=== PATIENT | female | born 1950 | race Caucasian/White ===

== ENCOUNTER 2018-01-17 10:56 | Emergency (ER) | payer MEDICARE ==
[2018-01-17 11:39] LABS: BASOPHILS 0.3 % (0-2); HEMOGLOBIN 13.2 g/dL (12-16); IMMATURE GRANULOCYTES 0.5 % (0-5); LYMPHOCYTES 11.4 % (15-50); MCHC 34.7 g/dL (31.0-37.0); MEAN PLATELET VOLUME 9.7 fL (7.4-10.4); MONOCYTES 8.5 % (2-11); NEUTROPHILS 75.3 % (40-80); PLATELET COUNT 374 10x3/uL (130-400); RBC 4.13 10x6/uL (4.00-5.40); RDW 12.3 % (11.5-14.5); WBC 16.1 10x3/uL (4.8-10.8)
[2018-01-17 11:47] LABS: APPEARANCE CLEAR (CLEAR); BACTERIA FEW /hpf (NONE SEEN); BILIRUBIN NEGATIVE (NEGATIVE); COLOR YELLOW (YELLOW); EPITHELIAL CELLS 0-5 /hpf (0-5); GLUCOSE NEGATIVE (NEGATIVE); KETONE NEGATIVE (NEGATIVE); MUCUS >1+ /lpf (NONE SEEN); NITRITE NEGATIVE (NEGATIVE); PROTEIN NEGATIVE (NEGATIVE); RED CELLS - URINE 0-5 /hpf (0-5); SPECIFIC GRAVITY 1.015 (1.005-1.020); UROBILINOGEN NORMAL (NORMAL); WHITE CELLS - URINE 0-5 /hpf (0-5)
[2018-01-17 11:57] LABS: ALBUMIN 2.9 g/dL (3.4-5.0); ANION GAP 11.3 mmol/L (8-16); BILIRUBIN - TOTAL 0.5 mg/dL (0.2-1.3); CARBON DIOXIDE 29.6 mmol/L (21.0-32.0); CREATININE - SERUM 0.9 mg/dL (0.6-1.3); POTASSIUM - SERUM 3.9 mmol/L (3.5-5.1); PROTEIN - SERUM 7.3 g/dL (6.4-8.2)
== END 2018-01-17 13:26 | disposition home or self-care (01) ==
LOC: D.ER 10:56
PROVIDERS: Emergency Medicine
DX: K59.00 Constipation, unspecified (principal); R10.9 Unspecified abdominal pain

== ENCOUNTER 2018-03-16 19:46 | Emergency (ER) | payer MEDICARE ==
[~2018-03-16] VITALS: Ht 160 cm; Wt 59.1 kg
[2018-03-16 19:57] VITALS: Ht 160 cm; Wt 59.1 kg
[2018-03-16] MEDS ORDERED: ADDERALL 20 MG20 M1 PO (19:58)
[2018-03-16] MEDS ORDERED: MEDROL DOSE PACK4 MG PO (20:08)
[2018-03-16] MEDS ORDERED: ZANTAC150 MG PO (20:57)
[2018-03-16] MEDS ORDERED: ATARAX 25 MG TA25 MG PO (20:57)
[2018-03-16 21:21] VITALS: BP 159/75
== END 2018-03-16 21:22 | disposition home or self-care (01) ==
LOC: D.ER 19:46
DX: L50.9 Urticaria, unspecified (principal)

== ENCOUNTER 2019-07-09 00:26 | Inpatient (IN) | payer MEDICARE ==
[~2019-07-09] VITALS: Ht 160 cm; Wt 70.6 kg
[~2019-07-09 00:26] MED LIST: ADDERALL 20 MG20 M1 PO; ATARAX 25 MG TA25 MG PO; MEDROL DOSE PACK4 MG PO; ZANTAC150 MG PO
[2019-07-09] MEDS ORDERED: BENTYL 20 MG TA20 MG PO (00:36)
[2019-07-09 01:27] LABS: CALC OSMOLALITY 273 mosm/kg (275-300); CARBON DIOXIDE 23.1 mmol/L (21.0-32.0); CHLORIDE - SERUM 96 mmol/L (98-107); CREATININE - SERUM 1.7 mg/dL (0.6-1.3); SODIUM 134 mmol/L (136-145); UREA NITROGEN 14 mg/dL (7-18); eGFR NON AFRICAN AMERICAN 32 mL/min (90-120)
[2019-07-09 01:31] LABS: GLUCOSE 184 mg/dL (74-106)
[2019-07-09 01:34] LABS: BASOPHILS 0.2 % (0-2); EOSINOPHILS 0.1 % (0-7); HEMATOCRIT 46.1 % (36.0-48.0); HEMOGLOBIN 15.3 g/dL (12-16); IMMATURE GRANULOCYTES 6.7 % (0-5); LYMPHOCYTES 3.3 % (15-50); MCH 31.6 pg (26.0-34.0); MCHC 33.2 g/dL (31.0-37.0); MCV 95.2 fL (80.0-100.0); MEAN PLATELET VOLUME 10.2 fL (7.4-10.4); MONOCYTES 2.1 % (2-11); NEUTROPHILS 87.6 % (40-80); RBC 4.84 10x6/uL (4.00-5.40); RDW 12.1 % (11.5-14.5); WBC 19.6 10x3/uL (4.8-10.8)
[2019-07-09 01:35] LABS: PLATELET COUNT 583 10x3/uL (130-400)
[2019-07-09 01:39] LABS: ALBUMIN 2.5 g/dL (3.4-5.0); ALKALINE PHOSPHATASE 156 U/L (46-116); ALT (SGPT) 29 U/L (10-68); AMYLASE - SERUM 24 U/L (25-115); BILIRUBIN - TOTAL 0.69 mg/dL (0.2-1.3); LIPASE 74 U/L (73-393); PROTEIN - SERUM 7.5 g/dL (6.4-8.2)
[2019-07-09 01:41] LABS: TROPONIN-I < 0.017 ng/mL (0.000-0.060)
--- NOTE | 2019-07-09 02:02 | NUR ---
PT TO CT AT THIS TIME.
[2019-07-09 03:17] LABS: APPEARANCE HAZY (CLEAR); BILIRUBIN NEGATIVE (NEGATIVE); COLOR YELLOW (YELLOW); GLUCOSE NEGATIVE (NEGATIVE); KETONE NEGATIVE (NEGATIVE); NITRITE NEGATIVE (NEGATIVE); PROTEIN 1+ mg/dL (NEGATIVE); SPECIFIC GRAVITY 1.015 (1.005-1.020); UROBILINOGEN NORMAL (NORMAL)
[2019-07-09 03:19] LABS: AMORPHOUS SEDIMENT <1+ /lpf (NONE SEEN); BACTERIA FEW /hpf (NEGATIVE); EPITHELIAL CELLS 0-5 /hpf (0-5); MUCUS <1+ /lpf (NONE SEEN); RED CELLS - URINE 0-5 /hpf (0-5); WHITE CELLS - URINE 0-5 /hpf (NEGATIVE)
[2019-07-09 04:41] VITALS: BP 103/63
[2019-07-09 07:55] VITALS: BP 94/51
[2019-07-09 08:41] LABS: HEMATOCRIT 44.4 % (36.0-48.0); HEMOGLOBIN 14.8 g/dL (12-16); MCH 32.3 pg (26.0-34.0); MCHC 33.3 g/dL (31.0-37.0); MCV 96.9 fL (80.0-100.0); PLATELET COUNT 690 10x3/uL (130-400); RBC 4.58 10x6/uL (4.00-5.40); RDW 12.5 % (11.5-14.5); WBC 21.2 10x3/uL (4.8-10.8)
[2019-07-09 08:53] LABS: APTT 25.4 SECONDS (22.8-39.4); INR 1.21 (0.85-1.17); PROTIME 14.8 SECONDS (11.6-15.0)
[2019-07-09 09:00] LABS: ANION GAP 17.4 mmol/L (8-16); CALCIUM 8.6 mg/dL (8.5-10.1); CARBON DIOXIDE 22.1 mmol/L (21.0-32.0); MAGNESIUM - SERUM 2.1 mg/dL (1.8-2.4); PHOSPHOROUS 4.4 mg/dL (2.5-4.9)
[2019-07-09 09:02] LABS: POTASSIUM - SERUM 3.5 mmol/L (3.5-5.1)
[2019-07-09 13:03] VITALS: BP 94/43
[2019-07-09 13:37] LABS: EOSINOPHILS 1 % (0-7); LYMPHOCYTES 3 % (15-50); MONOCYTES 8 % (2-11); NEUTROPHILS 46 % (40-80); PLATELET ESTIMATE INCREASED
[2019-07-09 13:38] LABS: CRENATED CELLS OCC; ROULEAUX OCC
[2019-07-09 14:29] LABS: PATH REVIEW PERIPHERAL SMEAR REVIEWED
--- NOTE | 2019-07-09 14:32 | NUR ---
BLADDER SCANNED PT, PT HAS 73 ML IN BLADDER HAD JUST COME OUT OF RESTROOM BEFORE I SCANNED PT. CONTINUE WITH PLAN OF CARE
--- NOTE | 2019-07-09 15:28 | NUR ---
PT D-DIMER IS 7.94 CALLED AND SPOKE TO MOISES XIE AND RELAYED MESSAGE.
--- NOTE | 2019-07-09 15:55 | NUR ---
PT STARTED TO COUGH AND SPIT UP CONTENTS THAT RESEMBLED PRUNE JUICE, PT BECAME VERY ANTSY UNABLE TO SIT STILL BACK AMD FORTH FROM BED TO BATHROOM TO AIRCONDITIONER WILL GIVE MORE MEDICATION FOR PT TO RELAX AND CALM DOWN
--- NOTE | 2019-07-09 16:13 | NUR ---
I have reviewed this patient and I concur with the Shift Assessment completed by the Licensed Practical Nurse today this shift.
[2019-07-09 16:29] VITALS: BP 90/43
--- NOTE | 2019-07-09 19:25 | NUR ---
PT WAS ORDERED TELEMETRY, PER DELI/BAKERY ASSOCIATE JACOBO NONE AVAILABLE AND PT PLACED ON WAITING LIST. CONTINUE WITH PLAN OF CARE
[2019-07-09 19:30] VITALS: BP 98/53
[2019-07-10] VITALS (8 sets, daily range): BP systolic 90–133; BP diastolic 49–81; Ht 160 cm; Wt 70.6 kg
--- NOTE | 2019-07-10 06:00 | NUR ---
I have reviewed this patient and I concur with the Shift Assessment completed by the Licensed Practical Nurse today this shift.
[2019-07-10 07:33] LABS: CALCIUM 8.3 mg/dL (8.5-10.1); CARBON DIOXIDE 18.9 mmol/L (21.0-32.0); MAGNESIUM - SERUM 2.1 mg/dL (1.8-2.4); PHOSPHOROUS 4.9 mg/dL (2.5-4.9)
[2019-07-10 07:34] LABS: POTASSIUM - SERUM 5.9 mmol/L (3.5-5.1)
--- NOTE | 2019-07-10 07:42 | NUR ---
PT VERY CONFUSED THIS MORNING AND ANTSY. SHE HAS BEEN UP AND DOWN MUBLING AND HAS PULLED IV OUT TWICE ALREADY, PT STATES SHE NEEDS CLARIFICATION ON SURGERY AND HONESTY AND NO ONE IS TELLING HER ANYTHING, WENT OVER CONSENTS AGAIN AND REASON WHY SHE IS IN PAIN, PT WAITING ON PARTNER TO ARRIVE. WILL CONTINUE WITH PLAN OF CARE AND ANSWER ALL QUESTIONS BEST I CAN
[2019-07-10 08:00] LABS: BASOPHILS 0.2 % (0-2); EOSINOPHILS 0.1 % (0-7); HEMATOCRIT 38.1 % (36.0-48.0); HEMOGLOBIN 12.5 g/dL (12-16); IMMATURE GRANULOCYTES 4.8 % (0-5); LYMPHOCYTES 2.6 % (15-50); MCH 31.6 pg (26.0-34.0); MCHC 32.8 g/dL (31.0-37.0); MCV 96.2 fL (80.0-100.0); MEAN PLATELET VOLUME 10.3 fL (7.4-10.4); MONOCYTES 2.2 % (2-11); NEUTROPHILS 90.1 % (40-80); PLATELET COUNT 585 10x3/uL (130-400); RBC 3.96 10x6/uL (4.00-5.40); RDW 12.8 % (11.5-14.5); WBC 39.2 10x3/uL (4.8-10.8)
[2019-07-10 10:43] LABS: UDS - AMPHET NEGATIVE QUAL (NEGATIVE); UDS - BARB NEGATIVE QUAL (NEGATIVE); UDS - BENZO NEGATIVE QUAL (NEGATIVE); UDS - COCAINE NEGATIVE QUAL (NEGATIVE); UDS - OPIATE POSITIVE QUAL (NEGATIVE); UDS - PCP NEGATIVE QUAL (NEGATIVE); UDS - THC NEGATIVE QUAL (NEGATIVE)
--- NOTE | 2019-07-10 14:11 | NUR ---
I have reviewed this patient and I concur with the Shift Assessment completed by the Licensed Practical Nurse today this shift.
--- NOTE | 2019-07-10 15:15 | NUR ---
PT RECEIVED FROM OR AT THIS TIME. VSS. DR LYNNE AT BEDSIDE GIVEN UPDATE NEW ORDERS RECEIVED. FAMILY AT BEDSIDE GIVEN UPDATE
[2019-07-10 16:49] LABS: ANION GAP 15.2 mmol/L (8-16); CALCIUM 7.2 mg/dL (8.5-10.1); CARBON DIOXIDE 19.7 mmol/L (21.0-32.0); CREATININE - SERUM 1.4 mg/dL (0.6-1.3); POTASSIUM - SERUM 5.9 mmol/L (3.5-5.1)
[2019-07-10 17:32] LABS: HEMATOCRIT 38.2 % (36.0-48.0); HEMOGLOBIN 12.5 g/dL (12-16); MCH 31.6 pg (26.0-34.0); MCHC 32.7 g/dL (31.0-37.0); MCV 96.5 fL (80.0-100.0); MEAN PLATELET VOLUME 10.2 fL (7.4-10.4); PLATELET COUNT 540 10x3/uL (130-400); RBC 3.96 10x6/uL (4.00-5.40); RDW 13.1 % (11.5-14.5); WBC 38.6 10x3/uL (4.8-10.8)
[2019-07-10 18:51] LABS: EOSINOPHILS 3 % (0-7); LYMPHOCYTES 6 % (15-50); MONOCYTES 5 % (2-11); NEUTROPHILS 43 % (40-80); PLATELET ESTIMATE INCREASED
--- NOTE | 2019-07-10 19:00 | NUR ---
REPORT RECEIEVED, PT CONFUSED AND DISORIENTED TO PLACE, TIME, AND SITUATION, ATTEMPTED TO REORIENT. ASSESSMENT COMPLETE, SEE FLOWSHEET. SANTA IN PLACE, COLOSTOMY BAG ON LUQ, KWAN DRAIN X2, WOUND VAC ON ABD. NO ACUTE DISTRESS NOTED AT THIS TIME, WILL CONTINUE TO MONITOR.
--- NOTE | 2019-07-10 20:00 | NUR ---
PT PULLED OUT PIV IN RIGHT HAND. CATH TIP INTACT.
--- NOTE | 2019-07-10 20:58 | MORECARE ---
CASE MANAGEMENT DISCHARGE SUMMARY PATIENT: PIPER HERNANDEZ UNIT: [id number] ADM DATE: 07/09/19 AGE: 68 : 54 SEX: F ROOM/BED: D.2305 AUTHOR: RUIZ,DOC PHYSICIAN: REFERRING PHYSICIAN: YAW TORREZ MD DATE OF SERVICE: 07/10/19 Discharge Plan Patient Name: PIPER HERNANDEZ Facility: [facility]:[place] : 1950 Planned Disposition: Home Anticipated Discharge Date: Discharge Date: Expected LOS: Initial Reviewer: [email or web address] Initial Review Date: 07/10/2019 Generated: 07/10/19 9:58 pm Comments DCP- Discharge Planning Updated by [email or web address]: Krista Samuels on 07/10/19 7:[address] Patient Name: PIPER HERNANDEZ Admission Status: ER Accout number: [id number] Admission Date: 07-09-2019 : 1950 Admission Diagnosis: Attending: YAW TORREZ Current LOS: 1 Anticipated DC Date: Planned Disposition: Home Primary Insurance: MEDICARE A & B Discharge Planning Comments: CM met with patient to complete initial dc planning assessment. CM educated patient on the CM role and verbal consent given by patient to complete assessment. Patient lives at home with her life partner Sherman where she is independent with her care. At discharge patient plans to return home and feels this is a safe discharge. CM discussed availability of home health, rehab services, and medical equipment. Sherman will transport home when discharged. Patient denied known discharge needs at this time. Uncertain of discharge needs @ this time. CM will continue to follow and will assist as needed with dc plans/needs. Louver Door Assembler: Krista Samuels DCPIA - Discharge Planning Initial Assessment Updated by [email or web address]: Krista Samuels on 07/10/19 8:54 pm * Is the patient Alert and Oriented? Yes * How many steps to enter\exit or inside your home? * PCP NO PCP * Pharmacy [facility] * Preadmission Environment Home with Family * ADLs Independent * Equipment None * List name and contact numbers for known caregivers / representatives who currently or will assist patient after discharge: [facility] - [phone] OR [phone] * Verbal permission to speak to the caregivers and representatives has been obtained from the patient. Yes * Community resources currently utilized None * Additional services required to return to the preadmission environment? No * Can the patient safely return to the preadmission environment? Yes * Has this patient been hospitalized within the prior 30 days at any hospital? No Patient Name: PIPER HERNANDEZ Page [phone] at 2057 All edits/amendments must be made on the electronic document DICTATION DATE: 07/10/192057 ONION TOPPER: ROMA 07/10/192057 RPT#: [id number] DC DATE: STATUS: ADM IN [facility] [address] [place] [address] END OF REPORT
--- NOTE | 2019-07-10 21:00 | NUR ---
RESTRAINTS IN PLACE, NO ACUTE DISTRESS NOTED.
--- NOTE | 2019-07-10 21:19 | NUR ---
SPOKE WITH DR. LYNNE RE: ORDER CLARIFICATION ON VALIUM. NOTIFIED OF CONFUSION AND PT PULLING AT KWAN/NGT - NEW ORDERS REC'D. AT BS - NOTIFIED OF NEED/ORDER FOR RESTRAINTS - SHE VERBALIZED UNDERSTANDING.
--- NOTE | 2019-07-10 23:00 | NUR ---
PT RESTING IN BED, NO ACUTE DISTRESS NOTED.
[2019-07-11] VITALS (23 sets, daily range): BP systolic 104–142; BP diastolic 59–91
--- NOTE | 2019-07-11 01:00 | NUR ---
PT CONFUSED AND DISORIENTED TO TIME, PLACE, AND SITUATION. REORIENTED NEEDED.
--- NOTE | 2019-07-11 03:00 | NUR ---
PT DISORIENTED TO TIME, PLACE, AND SITUATION. PT SLIGHTLY AGITATED, REORIENTED NEEDED. VITALS STABLE.
--- NOTE | 2019-07-11 05:00 | NUR ---
PT RESTING IN BED, DISORIENTED TO PLACE, TIME AND SITUATION. NO ACUTE DISTRESS NOTED, WILL CONTINUE TO MONITOR.
[2019-07-11 05:08] LABS: ANION GAP 11.4 mmol/L (8-16); CARBON DIOXIDE 24.3 mmol/L (21.0-32.0); CREATININE - SERUM 1.1 mg/dL (0.6-1.3); MAGNESIUM - SERUM 2.3 mg/dL (1.8-2.4); VANCOMYCIN - RANDOM 14.2 ug/mL (10.0-20.0)
[2019-07-11 05:13] LABS: POTASSIUM - SERUM 4.7 mmol/L (3.5-5.1)
[2019-07-11 05:21] LABS: BASOPHILS 0.2 % (0-2); EOSINOPHILS 0 % (0-7); HEMOGLOBIN 9.9 g/dL (12-16); IMMATURE GRANULOCYTES 4.1 % (0-5); LYMPHOCYTES 4.1 % (15-50); MCH 30.7 pg (26.0-34.0); MCHC 31.9 g/dL (31.0-37.0); MCV 96.3 fL (80.0-100.0); MONOCYTES 2.1 % (2-11); NEUTROPHILS 89.5 % (40-80); PLATELET COUNT 372 10x3/uL (130-400); RBC 3.22 10x6/uL (4.00-5.40); RDW 12.9 % (11.5-14.5); WBC 24.1 10x3/uL (4.8-10.8)
--- NOTE | 2019-07-11 07:00 | NUR ---
REC'D REPORT AND RESUMED CARE, AWAKE AND CONFUSE, PULLIING AGAINST LINES, O2 VIA NC AT 4L, SAT 96%, OTHER VSS, DENIES PAIN, ASSESSMENT COMPLETED PER FLOWSHEET, VSS, REPOSITIONED TO LEFT SIDE ...NOTED ABDOMEN WITH KWAN DRAINS X2 WITH SERO SANGUINESS DRAINAGE, EMPTIED 90 ON L AND 60 ON RIGHT, MIDLINE WOUND VAC DRESSING IN PLACE, CDI, LL ABDOMEN WITH COLOSTOMY, DRAINING LIQUID STOOL, SANTA TO GRAVITY WITH YELLOW CONENTRATE DRAINGE TO BAG, SCDS AMD WRIST RESTRAINTS ON B/L, WILL CONTINUE WIHT POC
--- NOTE | 2019-07-11 07:57 | OP ---
PATIENT NAME: PIPER HERNANDEZ MEDICAL RECORD: [id number] :54 LOCATION:[facility] D.2305 ADMISSION DATE:07/09/19 SURGEON: FLOR LYNNE MD DATE OF OPERATION: 07/10/2019 SURGEON: Flor Lynne MD PREOPERATIVE DIAGNOSIS: Intraabdominal sepsis, acute renal failure, and pneumoperitoneum. 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 PROCEDURE PERFORMED: Diagnostic laparoscopy converted to laparotomy with abdominal washout of multiple abscess including pelvis and multiple intraloop abscesses. A takedown of a coloenteric fistula, sigmoid colectomy with end colostomy for perforated diverticulitis, right hemicolectomy, mobilization of splenic flexure, and left subclavian central venous line placement. ANESTHESIA: General. COMPLICATIONS: None. SPECIMENS: 1. Right colon. 2. Sigmoid colon. 3. Intraabdominal fluid cultures for Gram stain, culture, and sensitivity. ESTIMATED BLOOD LOSS: 200 cc. Case was grossly contaminated. OPERATIVE COURSE: After consent was obtained, the patient was taken to the operating room and placed in supine position on the operating table. Next, general anesthesia was given via endotracheal intubation after a timeout was performed to confirm the correct patient and procedure. The abdomen was prepped and draped in typical sterile fashion. Ioban dressing was placed and local anesthetic was injected in the left upper quadrant at Greer's point. A stab incision was made with 11-blade scalpel. Using a 5-mm bladeless optical trocar, the abdomen under direct laparoscopic vision. Adequate pneumoperitoneum was achieved. The abdominal cavity was inspected. There was pus located throughout both upper quadrants, the right and left lateral side carrion and pelvis. Two additional 5-mm trocars were then placed in the abdomen under direct laparoscopic vision in the left lateral and left lower quadrants. At this time, the pelvic and the intraabdominal abscess collections were collected in the ocular suctioned and sent for Gram stain culture and sensitivity. The area of largest abscess was loaded on the right lower quadrant into the pelvis. There was concern this time for perforated appendicitis. A small appendix was identified and appeared normal. The cecum was mobilized. The terminal ileum was densely adherent to the sigmoid colon. After gentle blunt dissection and sharp scissor dissection was able to identify the area of coloenteric fistula in order to further evaluate the abdomen and area of contamination. Sharp Metzenbaum scissors were used to transect the coloenteric fistula involving the terminal ileum and sigmoid colon. This allowed for full mobilization of the small bowel. The small bowel was retracted cephalad. The pelvic abscess was OPERATIVE REPORT [id number] PIPER HERNANDEZ irrigated and suctioned. The sigmoid colon was markedly indurated and inflamed consistent with diverticulitis or mass. At this time, I converted to a laparotomy to further evaluate remaining intra-abdominal bowel and GI tract. Using 10 blade scalpel, an incision made from xiphoid process to the pubic tubercle. Dissection continued through the subcutaneous tissue with electrocautery. The fascia was opened with electrocautery. The peritoneum was incised using Metzenbaum scissors at direct vision. Remaining portion of the incision was opened with electrocautery. An Gamaliel wound retractor was placed. Again, the abdomen at this time was copiously irrigated and suctioned. Loculations were taken down with blunt dissection. There was a chronic fistula noted in the terminal ileum. At this time, the ascending colon appeared within normal limits. The transverse colon appeared within normal limits. The transverse mesocolon was retracted cephalad. The ligament of Treitz was identified. The small bowel was run from ligament of Treitz to the terminal ileum. There was significant amount of small bowel with dense fibrinous attachments consistent with ongoing intra-abdominal abscess. No serosal defects identified outside of the fistula in the terminal ileum. At this time, an ileocecectomy was performed. The mesentery was divided. The most viable portion of the distal small-bowel, the cecum, and the hepatic flexure was mobilized. The middle colic vessels were identified. The right colon was transected just at the right branch of the middle colic vessels with the ANA stapler. An ileocolonic anastomosis was performed with a linear cutting GI stapler. The mesentery was taken with the Harmonic scalpel. This specimen was passed off the field and sent for permanent pathology. The staple line was then imbricated using 3-0 Vicryl suture. The mesenteric window was closed using 3-0 Vicryl suture. At this time, the greater omentum was dissected off the transverse colon. The dissection continued to mobilize the splenic flexure. The white line of Toldt was seen on the left colon using much electrocautery and blunt dissection. The sigmoid colon was densely adherent to the left lateral pelvic side wall as well as the uterus. There is an abscess cavity between the anterior surface of the rectum and the uterus. This cavity was entered and purulent debris was irrigated. At this time, the sigmoid colon was mobilized off the pelvic sidewall. The left ureter was identified. A vessel loop was placed on the left ureter. It was traced into the pelvis. The hemorrhoidal vessels were identified. The mesentery was divided using the Harmonic scalpel. The sigmoid colon was transected proximally and healthy viable tissue margins with GI stapler. The remaining portion of mesentery was taken on the rectum to the pelvis. The peritoneal reflection was opened with electrocautery. Dissection continued until healthy distal rectum was identified. Using again a ANA stapler, the rectum was transected. The GI stapler and the sigmoid specimen was passed off the field and sent for permanent pathology. A 2-0 Prolene suture was used to andreina the rectal stump. The right ureter was identified. At this time, it appeared to be in its normal anatomic position without disruption. The abdomen was again copiously irrigated and suctioned. Jewels powder was applied into the pelvis for increased hemostasis. The small bowel was run again from the ligament of Treitz to the ileocolonic anastomosis. No serosal defects were identified. There is no active bleeding, no drainage of succuss. At this time, the incision was made in the left lateral quadrant. Using electrocautery, the subcutaneous tissues was dissected using electrocautery. The fascia was identified. A cruciate incision was made in the anterior fascia. The muscles were gently with blunt dissection. The peritoneum was then opened with electrocautery. A Eleonora was used to clip the staple line on the descending colon. The colon was delivered through the incision site. The fascia was then closed with #1 looped PDS. The skin was loosely reapproximated OPERATIVE REPORT [id number] PIPER HERNANDEZ with nicki. A Prevena dressing was placed. Prior to abdominal closure, 2 KWAN drains were placed in the abdomen, one into the left lateral sidewall, one in the pelvis. Once the Prevena was in place, the colostomy was matured in a Elizabeth fashion using 3-0 Vicryl suture. An ostomy bag was placed. At end of the case, all needle and instrument counts were correct. No complications occurred. The left chest and neck were then prepped and draped in typical sterile fashion. The left subclavian vein was cannulated in the first pass. A guidewire was placed. The dilator was passed over the wire in standard Seldinger fashion. The catheter was then passed over the wire in a standard Seldinger fashion. The wire was removed. All 3 ports were aspirated and flushed. A Biopatch was placed through the skin using 2-0 Prolene suture and a sterile Tegaderm dressing. At this time, the patient was extubated and transferred to the recovery room in satisfactory condition. TRANSINT:[id number] Voice Confirmation ID: [id number] DOCUMENT ID: [id number] FLOR LYNNE MD at 0757 CC: [id number] DICTATION DATE: 07/10/19 1423 COUPLES THERAPIST: 07/10/19 1842 ADM IN [place] [id number] [place] [id number]
--- NOTE | 2019-07-11 09:00 | NUR ---
MORNING MEDS GIVEN PER MAR FLOWSHEET, HELD PO MEDS RE: NPO ORDER, RIGHT LAYNE NGT TO CONCEPCION
--- NOTE | 2019-07-11 11:00 | NUR ---
REASSESSMENT COMPLETED, NO ACUTE CHANGE FROM PREVIOUS ASSESSMENT
--- NOTE | 2019-07-11 13:30 | NUR ---
PULLED OFF OSTOMY BAG, STOOL LEAKING IN BEDS, SKINCARE AND LINEN CHANGE COMPLETED
--- NOTE | 2019-07-11 15:00 | NUR ---
NO ACUTE CHANGE FROM PERVIOUS ASSESSMENT, RESTING WITH NO SIGN OF DISTRESS, VSS
--- NOTE | 2019-07-11 16:00 | NUR ---
I AN O'S COMPLETED, AT BEDSIDE, STATUS UPDATED, VOICES NO NEEDS AT THIS TIME
--- NOTE | 2019-07-11 19:00 | NUR ---
SHIFT ASSESSMENT COMPLETE. AT BEDSIDE. UPDATED ON PT CONDITION. NO FURTHER QUESTIONS AT THIS TIME. PT IS ORIENTED X2, CONFUSED TO TIME AND SITUATION. NGT R NARE LIWS, BROWN BILE NOTED. RR SHALLOW, CLEAR BREATH SOUNDS HEARD BILAT THROUGHOUT ALL LOBES, NC ON @ 4 L/MIN. S1S2 AUDIBLE, HR 105 SINUS TACH SHOWING ON MONITOR. L SUBCLAVIAN CVL INFUSING D5 1/2 NS @ 100 ML/HR, FOLIC ACID @ 100 ML/HR AND MORPHINE PACKING TRACTOR MACHINE OPERATOR 1 MG Q10 MIN, 2 MG BOLUS DOSE Q3 HRS FOR BREAK THROUGH PAIN, 10 MG 4 HOUR LOCKOUT, PACKING TRACTOR MACHINE OPERATOR BUTTON WITHIN REACH. L HAND PIV S/L. ABD FLAT, MIDLINE INCISION, WOUND VAC IN PLACE, NO AIR LEAK DETECTED. LEFT UPPER AND LOWER KWAN'S DRAINING SEROSANG FLUID, COMPRESSED, BS HYPOACTIVE X4. SANTA CATH INTACT DRAINING CONCENTRATED URINE. SCDS ON AND FUNCTIONING. L&R SOFT WRIST RESTRAINTS IN PLACE, SKIN WNL. RADIAL AND PEDAL PULSES PALP. CVP ZEROED, 10. NO FURTHER FINDINGS AT THIS TIME. VSS. CALL LIGHT IN REACH, BED IN LOWEST POSITION. PT IS IN SIGHT OF NURSE'S STATION.
--- NOTE | 2019-07-11 20:00 | NUR ---
DR. LYNNE AT BEDSIDE. UPDATED ON PT CONDITION. VALIUM ORDER CHANGED TO PRN, SEE EMAR FOR FURTHER DETAILS. WILL CONT WITH POC.
--- NOTE | 2019-07-11 21:00 | NUR ---
ORAL CARE PROVIDED. VSS. CALL LIGHT AND HOMEMAKER COMPANION BUTTON WITHIN REACH. REPOSITIONED FOR COMFORT. PT DENIES ANY FURTHER NEEDS. WILL CONT WITH POC.
--- NOTE | 2019-07-11 22:30 | NUR ---
PT VERY ANXIOUS AND CALLING ON CELL PHONE. SPOKE WITH ON PHONE AND UPDATED HER ON WHAT WAS GOING ON. PRN VALIUM ADMIN. REPOSITIONED FOR COMFORT. WILL CONT CLOSE MONITORING.
--- NOTE | 2019-07-11 23:00 | NUR ---
REASSESSMENT COMPLETE. ORAL CARE PROVIDED. PT RESTING PEACEFULLY WITH NO SIGNS OF ACUTE DISTRESS NOTED. UPPER AND LOWER KWAN'S COMPRESSED, SEROSANG FLUID. WOUND VAC INTACT WITH NO AIR LEAK DETECTED. WILL CONT WITH POC.
[2019-07-12] VITALS (17 sets, daily range): BP systolic 100–141; BP diastolic 57–99
--- NOTE | 2019-07-12 01:00 | NUR ---
PT RESTING WITH NO SIGNS OF ACUTE DISTRESS NOTED. VSS. WILL CONT WITH POC.
--- NOTE | 2019-07-12 03:00 | NUR ---
REASSESSMENT COMPLETE. NO CHANGES IN PT CONDITION. VSS. SEE FLOWSHEET FOR FURTHER DETAILS. CALL LIGHT AND ENGINEER OF SYSTEM DEVELOPMENT BUTTON WITHIN REACH. NO FURTHER FINDINGS AT THIS TIME. WILL CONT TO MONITOR.
--- NOTE | 2019-07-12 05:00 | NUR ---
CHG BATH, COMPLETE LINEN CHANGE, SANTA AND ORAL CARE PROVIDED. PT TOLERATED WELL. REPOSITIONED FOR COMFORT. AGRICULTURAL ENGINEERING TECHNICIAN AND CALL LIGHT IN REACH. WILL CONT WITH POC.
[2019-07-12 05:52] LABS: HEMATOCRIT 27.9 % (36.0-48.0); HEMOGLOBIN 8.9 g/dL (12-16); MCH 30.8 pg (26.0-34.0); MCHC 31.9 g/dL (31.0-37.0); MCV 96.5 fL (80.0-100.0); MEAN PLATELET VOLUME 9.9 fL (7.4-10.4); PLATELET COUNT 275 10x3/uL (130-400); RBC 2.89 10x6/uL (4.00-5.40); RDW 13.1 % (11.5-14.5); WBC 20.3 10x3/uL (4.8-10.8)
[2019-07-12 06:01] LABS: CALCIUM 7.5 mg/dL (8.5-10.1); CARBON DIOXIDE 27.6 mmol/L (21.0-32.0); MAGNESIUM - SERUM 2.1 mg/dL (1.8-2.4); SODIUM 148 mmol/L (136-145); VANCOMYCIN - RANDOM 8.1 ug/mL (10.0-20.0)
[2019-07-12 06:07] LABS: CALC OSMOLALITY 300 mosm/kg (275-300); CREATININE - SERUM 0.8 mg/dL (0.6-1.3); GLUCOSE 140 mg/dL (74-106); PHOSPHOROUS 2.5 mg/dL (2.5-4.9); UREA NITROGEN 26 mg/dL (7-18); eGFR NON AFRICAN AMERICAN 76 mL/min (90-120)
[2019-07-12 06:12] LABS: CHLORIDE - SERUM 117 mmol/L (98-107)
--- NOTE | 2019-07-12 07:00 | NUR ---
REC'D REPORT ND RESUMED CARE, SLEEPING AROUSABLE TO VERBAL STIMULI, VSS, O2 VIA NC AT 4 L SAT 97%, LEFT SC TL WITH D5 1/2NS INFUSING AT 100 CC/HR, CVP CONNECTED, ZEROED RATE READING 6, LEFT HAND PIV SL, ABDOMEN WITH WOUND VAC MIDLINE, SITE CDI, LEFT OF MIDLINE KWAN'S X2 WITH COLLAPSED BULB, AND COLOSTOMY WITH LIQUID BROWN DRAINAGE TO BAG, SANTA TO GRAVITY WITH YELLOW CONCENTRATED DRAINAGE TO BAG, B/L SCD'S AND SOFT WRIST RESTRAINTS IN USE, DENIES PAIN, ASSESSMENT COMPLETE PER FLOWSHEET, CALL LIGHT IN REACH
--- NOTE | 2019-07-12 07:30 | NUR ---
DR. LYNNE HERE FOR EVAL, NOTIFIED RE: CRITICAL CHLORIDE, NEW ORDERS GIVEN
--- NOTE | 2019-07-12 08:00 | NUR ---
RIGHT NARE NGT DC'D WITHOUT DIFFICULTY, TOLERATED WITHOUT DISTRESS, KWAN R DC'D WITH 25 CC SEROUS DRAINAGE TO BULB....
--- NOTE | 2019-07-12 08:07 | NUR ---
Nutrition follow-up: NPO Active DT's Labs reviewed Wt: 155# NGT->LIWS D5NS @ 100 ml/hr Pt not meeting estimated energy needs at this time Recommend starting nutrition support. RDN following.
--- NOTE | 2019-07-12 09:40 | NUR ---
MORNING MEDS GIVEN PER MAR FLOWSHEET, HELD PO MEDS PER NPO ORDER
--- NOTE | 2019-07-12 10:00 | NUR ---
AT BEDSIDE, STATUS UPDATED, VOICES NO NEEDS AT THIS TIME
--- NOTE | 2019-07-12 11:00 | NUR ---
ASSESSMENT COMPLETED PER FLOWSHEET, NO ACUTE CHANGE FROM PREVIOUS, RESTING WITH AT BEDSIDE, ICE CHIPS IN USE, NO NEEDS AT THIS TIME
[2019-07-12 11:07] LABS: LYMPHOCYTES 10 % (15-50); MONOCYTES 9 % (2-11); NEUTROPHILS 75 % (40-80); PLATELET ESTIMATE NORMAL
--- NOTE | 2019-07-12 13:10 | NUR ---
Nutrition consult: Received verbal order from Dr. Fernandez to begin TPN. Chart reviewed Spoke with pharmacy TPN, Labs orders entered, RDN following.
[2019-07-12 13:30] LABS: MAGNESIUM - SERUM 1.9 mg/dL (1.8-2.4); PHOSPHOROUS 2.9 mg/dL (2.5-4.9)
--- NOTE | 2019-07-12 13:30 | NUR ---
SLEEPING WITH NO SIGN OF DISTRESS, VSS, AROUSES TO VERBAL STIMULI, DENIES PAIN CLIENT SUCCESS MANAGER IN USE, CALL LIGHT IN REACH, NO NEEDS AT THIS TIME
--- NOTE | 2019-07-12 15:00 | NUR ---
NO ACUTE CHANGE FROM PREVIOUS ASSESSMENT, WILL CONTINUE WITH POC
--- NOTE | 2019-07-12 17:50 | NUR ---
REPORT CALLED AND PATIENT TRANSFERRED TO 2205 VIA BED, AAO, FAMILY AT BEDSIDE
[2019-07-12] MEDS ORDERED: ADDERALL 30 MG30 MG PO (18:38)
--- NOTE | 2019-07-12 20:00 | NUR ---
RESTING IN BED ALERT, SOME CONFUSION NOTED, DRIFTS OFF TO SLEEP WHILE TALKING, MORPHINE WIND PROJECTS SUPERVISOR IN USE FOR PAIN CONTROL, D51/2NS, TPN AND LIPIDS INFUSING VIA LEFT CVL WITHOUT DIFFICULTY, KWAN DRAIN TINTACT TO LEFT LOWER QUADRANT WITH SEROUS FLUID NOTED WOUND VAC IN USE TO MIDLINE ABD INCISION, NO DRAINAGE NOTED IN TUBING, SANTA CATH TO GRAVITY DRAINAGE, COLOSTOMY BAG INTACT NO STOOL NOTED SEE SHIFT ASSESSMENT, CALL LIGHT IN REACH, AT BEDSIDE
[2019-07-13 01:20] VITALS: BP 110/67
[2019-07-13 05:52] VITALS: BP 116/57
[2019-07-13 06:36] LABS: BASOPHILS 0.3 % (0-2); EOSINOPHILS 0.6 % (0-7); HEMOGLOBIN 9.3 g/dL (12-16); IMMATURE GRANULOCYTES 8.9 % (0-5); LYMPHOCYTES 6.8 % (15-50); MCH 30.9 pg (26.0-34.0); MCHC 32.1 g/dL (31.0-37.0); MCV 96.3 fL (80.0-100.0); MONOCYTES 2.9 % (2-11); NEUTROPHILS 80.5 % (40-80); PLATELET COUNT 263 10x3/uL (130-400); RBC 3.01 10x6/uL (4.00-5.40); RDW 13.3 % (11.5-14.5); WBC 23.4 10x3/uL (4.8-10.8)
[2019-07-13 06:45] LABS: CALC OSMOLALITY 291 mosm/kg (275-300); CALCIUM 7.8 mg/dL (8.5-10.1); CARBON DIOXIDE 28.1 mmol/L (21.0-32.0); CHLORIDE - SERUM 110 mmol/L (98-107); CREATININE - SERUM 0.6 mg/dL (0.6-1.3); GLUCOSE 161 mg/dL (74-106); MAGNESIUM - SERUM 1.6 mg/dL (1.8-2.4); PHOSPHOROUS 2.9 mg/dL (2.5-4.9); POTASSIUM - SERUM 3.4 mmol/L (3.5-5.1); SODIUM 144 mmol/L (136-145); UREA NITROGEN 18 mg/dL (7-18); eGFR NON AFRICAN AMERICAN > 90 mL/min (90-120)
--- NOTE | 2019-07-13 08:15 | NUR ---
Nutrition follow-uo: Chart reviewed TPN adjusted RDN following
[2019-07-13 08:51] VITALS: BP 110/59
--- NOTE | 2019-07-13 09:54 | NUR ---
PT ALERT X 4. BREATH SOUNDS CLEAR BILAT, 4.5L O2 PER NC. CENTRAL LINE TO LEFT SUBCLAVIAN, DRESSING CDI. WOUND VAC TO MIDLINE INCISION, NO OUTPUT. COLOSTOMY TO LEFT SIDE, FERREIRA LIQUID OUTPUT. KWAN DRAIN TO LLQ, LIGHT PINK OUTPUT. PT REPORTING NO PAIN AT THIS TIME. SANTA IN PLACE, URINE YELLOW AND CLEAR. SCD'S IN USE. FAMILY AT BEDSIDE. BED LOW, CALL LIGHT IN REACH. NO OTHER NEEDS AT THIS TIME.
[2019-07-13 17:29] VITALS: BP 117/60
--- NOTE | 2019-07-13 19:30 | NUR ---
Patient using bathroom, life partner in room with patient. Helped patient back to bed. Patient has midline inscision with dressing c/d/i. Colostomy to the left upper abdomen. Lm drain to the left lower abdomen. L subcalvian central line, no redness or swelling w/ D51/2NS @ 50, TPN @40, Morphine EXECUTIVE OFFICE MANAGER @1,10,10. Encourage patient to call with any needs. Call light, EXECUTIVE OFFICE MANAGER button, and bedside table within reach.
[2019-07-13 20:56] VITALS: BP 115/63
[2019-07-14 00:36] VITALS: BP 100/63
[2019-07-14 05:21] VITALS: BP 103/60
[2019-07-14 07:07] LABS: HEMATOCRIT 26.8 % (36.0-48.0); HEMOGLOBIN 8.7 g/dL (12-16); MCH 30.7 pg (26.0-34.0); MCHC 32.5 g/dL (31.0-37.0); MCV 94.7 fL (80.0-100.0); MEAN PLATELET VOLUME 10.1 fL (7.4-10.4); PLATELET COUNT 287 10x3/uL (130-400); RBC 2.83 10x6/uL (4.00-5.40); RDW 13.2 % (11.5-14.5)
[2019-07-14 07:17] LABS: CALC OSMOLALITY 282 mosm/kg (275-300); CALCIUM 7.4 mg/dL (8.5-10.1); CARBON DIOXIDE 29.6 mmol/L (21.0-32.0); CHLORIDE - SERUM 107 mmol/L (98-107); CREATININE - SERUM 0.6 mg/dL (0.6-1.3); GLUCOSE 156 mg/dL (74-106); MAGNESIUM - SERUM 1.8 mg/dL (1.8-2.4); POTASSIUM - SERUM 3.7 mmol/L (3.5-5.1); SODIUM 140 mmol/L (136-145); UREA NITROGEN 16 mg/dL (7-18); eGFR NON AFRICAN AMERICAN > 90 mL/min (90-120)
[2019-07-14 07:32] LABS: HYPOCHROMASIA 2+; LYMPHOCYTES 2 % (15-50); MONOCYTES 3 % (2-11); NEUTROPHILS 89 % (40-80); PLATELET ESTIMATE NORMAL
[2019-07-14 09:19] VITALS: BP 120/51
[2019-07-14 12:20] VITALS: BP 108/64
[2019-07-14 17:04] VITALS: BP 124/61
--- NOTE | 2019-07-14 19:45 | NUR ---
PATIENT SITTING UP IN BED, SIGNIFICANT OTHER AT BEDSIDE. PATIENT LOOKS A LITTLE FLUSHED. SIGNIFICANT OTHER STATES THAT PATIENT MAY HAVE OVERWORKED HERSELF TODAY. PUT COOL WASH CLOTH ON PATIETNS FACE. ENCOURAGED PATIENT TO CALL WITH ANY OTHER NEEDS. BED RAILS X2. CALL LIGHT, SECURITY SHIFT SUPERVISOR BUTTON AND BEDSIDE TABLE WITHIN REACH.
[2019-07-14 20:00] VITALS: BP 112/59
[2019-07-15 04:00] VITALS: BP 132/64
[2019-07-15 06:29] LABS: BASOPHILS 0.6 % (0-2); EOSINOPHILS 1.4 % (0-7); HEMATOCRIT 26.8 % (36.0-48.0); HEMOGLOBIN 8.7 g/dL (12-16); IMMATURE GRANULOCYTES 11.2 % (0-5); LYMPHOCYTES 6.5 % (15-50); MCH 30.7 pg (26.0-34.0); MCHC 32.5 g/dL (31.0-37.0); MCV 94.7 fL (80.0-100.0); MEAN PLATELET VOLUME 10.3 fL (7.4-10.4); MONOCYTES 5.3 % (2-11); PLATELET COUNT 321 10x3/uL (130-400); RBC 2.83 10x6/uL (4.00-5.40); RDW 13.2 % (11.5-14.5); WBC 30.3 10x3/uL (4.8-10.8)
[2019-07-15 06:44] LABS: CALC OSMOLALITY 272 mosm/kg (275-300); CALCIUM 7.4 mg/dL (8.5-10.1); CARBON DIOXIDE 28.7 mmol/L (21.0-32.0); CHLORIDE - SERUM 103 mmol/L (98-107); CREATININE - SERUM 0.6 mg/dL (0.6-1.3); GLUCOSE 137 mg/dL (74-106); MAGNESIUM - SERUM 1.6 mg/dL (1.8-2.4); PHOSPHOROUS 3.1 mg/dL (2.5-4.9); POTASSIUM - SERUM 3.4 mmol/L (3.5-5.1); SODIUM 136 mmol/L (136-145); eGFR NON AFRICAN AMERICAN > 90 mL/min (90-120)
[2019-07-15 06:49] LABS: UREA NITROGEN 11 mg/dL (7-18)
[2019-07-15 08:21] VITALS: BP 121/67
[2019-07-15 12:12] VITALS: BP 112/56
--- NOTE | 2019-07-15 13:41 | NUR ---
Nutrition follow-up: Dr. Vásquez has advanced diet to vegetarian regular Visited with pt and she ate a good lunch and tolerated. Labs reviewed TPN still infusing; has been discontinued Wt: 155# Will provide food choices and honor all food preferences RDN took food preferences for dinner, breakfast today, tomorrow. Pt to write in preferences from cafeteria menu and pt menu. RDN following.
[2019-07-15 16:57] VITALS: BP 118/57
[2019-07-15 20:00] VITALS: BP 150/63
--- NOTE | 2019-07-15 20:15 | NUR ---
SITTING UP IN BED TALKING TO SIG OTHER. ALERT AND ORIENTED X4. FORGETFUL AT TIMES. RESP EVEN AND NONLABORED. RATES PAIN IN ABD 2. KWAN DRAIN NOTED TO LLQ WITH SEROUS FLUID IN BULB. MIDLINE ABD INCISION TO WOUND VAC WITH NO DRAINAGE NOTED IN CANISTER. COLOSTOMY NOTED TO LLQ WITH LARGE AMOUNT OF BROWN THICK LIQ STOOL. STOMA IS PINK. REFUSES TO WEAR SCDS. O2 @ 1.5L/NC. D5 1/2 NS @ 15 MLHR INFUSING IN LT TLSC. SR ELEVATED X2. CL IN REACH.
--- NOTE | 2019-07-15 22:07 | NUR ---
LT KWAN DRAIN DC/D AT THIS TIME. 50 ML SEROUS FLUID NOTED IN BULB. COLOSTOMY EMPTIED AND STOOL SPECIMENT SENT TO LAB FOR CDIFF.
--- NOTE | 2019-07-15 23:20 | NUR ---
MEDICATED WITH NORCO AND TORADOL ORDERED FOR ABD PAIN. CL IN REACH.
[2019-07-16] VITALS: BP 111/50
[2019-07-16 04:00] VITALS: BP 117/56
[2019-07-16 04:59] LABS: HEMATOCRIT 23.4 % (36.0-48.0); HEMOGLOBIN 7.8 g/dL (12-16); MCH 31.6 pg (26.0-34.0); MCHC 33.3 g/dL (31.0-37.0); MCV 94.7 fL (80.0-100.0); MEAN PLATELET VOLUME 10.4 fL (7.4-10.4); PLATELET COUNT 388 10x3/uL (130-400); RBC 2.47 10x6/uL (4.00-5.40); RDW 13.4 % (11.5-14.5); WBC 22.4 10x3/uL (4.8-10.8)
[2019-07-16 05:08] LABS: CHLORIDE - SERUM 107 mmol/L (98-107); MAGNESIUM - SERUM 1.9 mg/dL (1.8-2.4); PHOSPHOROUS 3.8 mg/dL (2.5-4.9); UREA NITROGEN 11 mg/dL (7-18)
[2019-07-16 05:10] LABS: CALC OSMOLALITY 277 mosm/kg (275-300); CALCIUM 7.4 mg/dL (8.5-10.1); CARBON DIOXIDE 29.3 mmol/L (21.0-32.0); CREATININE - SERUM 0.7 mg/dL (0.6-1.3); GLUCOSE 122 mg/dL (74-106); SODIUM 139 mmol/L (136-145); eGFR NON AFRICAN AMERICAN 89 mL/min (90-120)
[2019-07-16 05:11] LABS: POTASSIUM - SERUM 4.3 mmol/L (3.5-5.1)
[2019-07-16 08:19] VITALS: BP 135/57
[2019-07-16 08:44] LABS: ANISOCYTOSIS OCC; EOSINOPHILS 3 % (0-7); LYMPHOCYTES 7 % (15-50); MONOCYTES 10 % (2-11); NEUTROPHILS 78 % (40-80); PLATELET ESTIMATE NORMAL
[2019-07-16] MEDS ORDERED: HYDROCODON-ACE1 EAC7 PO (09:19)
[2019-07-16] MEDS ORDERED: LEVOFLOXACIN500 MG PO ×2 (09:19→13:49)
[2019-07-16] MEDS ORDERED: FLAGYL500 MG PO ×2 (09:19→13:49)
--- NOTE | 2019-07-16 10:58 | NUR ---
PT ALERT X 4. BREATH SOUNDS CLEAR BILAT. DR LYNNE REMOVED WOUND VAC, DRESSING PLACED ON MIDLINE INCISION. COLOSTOMY TO LEFT SIDE. PT REPORTING PAIN OF 3/10, WILL MONITOR. FAMILY AT BEDSIDE. BED LOW, CALL LIGHT IN REACH. NO OTHER NEEDS AT THIS TIME.
[2019-07-16 12:37] VITALS: BP 115/53
--- NOTE | 2019-07-16 15:39 | NUR ---
Printed information packet on ostomies given to pt. Encouraged her to read through it and we will discuss any questions. She voiced understanding.
--- NOTE | 2019-07-16 16:16 | MORECARE ---
CASE MANAGEMENT DISCHARGE SUMMARY PATIENT: PIPER HERNANDEZ UNIT: [id number] ADM DATE: 07/09/19 AGE: 68 : 52 SEX: F ROOM/BED: D.2206 AUTHOR: RUIZ,DOC PHYSICIAN: REFERRING PHYSICIAN: YAW TORREZ MD DATE OF SERVICE: 07/16/19 Discharge Plan Patient Name: PIPER HERNANDEZ Facility: [facility]:[place] : 1950 Planned Disposition: Home Anticipated Discharge Date: Discharge Date: Expected LOS: Initial Reviewer: [email or web address] Initial Review Date: 07/10/2019 Generated: 07/16/19 5:15 pm DCP- Discharge Planning Updated by [email or web address]: Krista Samuels on 07/10/19 7:[address] Patient Name: PIPER HERNANDEZ Admission Status: ER Accout number: [id number] Admission Date: 07-09-2019 : 1950 Admission Diagnosis: Attending: YAW TORREZ Current LOS: 1 Anticipated DC Date: Planned Disposition: Home Primary Insurance: MEDICARE A & B Discharge Planning Comments: CM met with patient to complete initial dc planning assessment. CM educated patient on the CM role and verbal consent given by patient to complete assessment. Patient lives at home with her life partner Sherman where she is independent with her care. At discharge patient plans to return home and feels this is a safe discharge. CM discussed availability of home health, rehab services, and medical equipment. Sherman will transport home when discharged. Patient denied known discharge needs at this time. Uncertain of discharge needs @ this time. CM will continue to follow and will assist as needed with dc plans/needs. Inspector And Mender: Krista Samuels DCPIA - Discharge Planning Initial Assessment Updated by [email or web address]: Krista Samuels on 07/10/19 8:54 pm * Is the patient Alert and Oriented? Yes * How many steps to enter\exit or inside your home? * PCP NO PCP * Pharmacy [facility] * Preadmission Environment Home with Family * ADLs Independent * Equipment None * List name and contact numbers for known caregivers / representatives who currently or will assist patient after discharge: [facility] [place] - [phone] OR [phone] * Verbal permission to speak to the caregivers and representatives has been obtained from the patient. Yes * Community resources currently utilized None * Additional services required to return to the preadmission environment? No * Can the patient safely return to the preadmission environment? Yes * Has this patient been hospitalized within the prior 30 days at any hospital? No Last DP export: 07/10/19 7:58 p Patient Name: PIPER HERNANDEZ Page [phone] at 1616 All edits/amendments must be made on the electronic document DICTATION DATE: 07/16/191614 FIGHTING VEHICLE SYSTEMS MAINTAINER: ROMA 07/16/191614 RPT#: [id number] DC DATE: STATUS: ADM IN [facility] [address] [place] [address] END OF REPORT
--- NOTE | 2019-07-16 16:23 | MORECARE ---
CASE MANAGEMENT DISCHARGE SUMMARY PATIENT: PIPER HERNANDEZ UNIT: [id number] ADM DATE: 07/09/19 AGE: 68 : 54 SEX: F ROOM/BED: D.2206 AUTHOR: RUIZ,DOC PHYSICIAN: REFERRING PHYSICIAN: YAW TORREZ MD DATE OF SERVICE: 07/16/19 Discharge Plan Patient Name: PIPER HERNANDEZ Facility: [facility]:[place] : 1950 Planned Disposition: Home Anticipated Discharge Date: Discharge Date: Expected LOS: Initial Reviewer: [email or web address] Initial Review Date: 07/10/2019 Generated: 07/16/19 5:23 pm DCP- Discharge Planning Updated by [email or web address]: Krista Samuels on 07/10/19 7:[address] Patient Name: PIPER HERNANDEZ Admission Status: ER Accout number: [id number] Admission Date: 07-09-2019 : 1950 Admission Diagnosis: Attending: YAW TORREZ Current LOS: 1 Anticipated DC Date: Planned Disposition: Home Primary Insurance: MEDICARE A & B Discharge Planning Comments: CM met with patient to complete initial dc planning assessment. CM educated patient on the CM role and verbal consent given by patient to complete assessment. Patient lives at home with her life partner Sherman where she is independent with her care. At discharge patient plans to return home and feels this is a safe discharge. CM discussed availability of home health, rehab services, and medical equipment. Sherman will transport home when discharged. Patient denied known discharge needs at this time. Uncertain of discharge needs @ this time. CM will continue to follow and will assist as needed with dc plans/needs. Repair Specialist: Krista Samuels DCPIA - Discharge Planning Initial Assessment Updated by [email or web address]: Krista Samuels on 07/10/19 8:54 pm * Is the patient Alert and Oriented? Yes * How many steps to enter\exit or inside your home? * PCP NO PCP * Pharmacy [facility] * Preadmission Environment Home with Family * ADLs Independent * Equipment None * List name and contact numbers for known caregivers / representatives who currently or will assist patient after discharge: [facility] - [phone] OR [phone] * Verbal permission to speak to the caregivers and representatives has been obtained from the patient. Yes * Community resources currently utilized None * Additional services required to return to the preadmission environment? No * Can the patient safely return to the preadmission environment? Yes * Has this patient been hospitalized within the prior 30 days at any hospital? No External [facility]iders [facility] Next Contact Date: Service Request Date: Service Type: Resolution: Reviewer: Comments: Coverage Notice Reviewer: [email or web address] Gilbert Maldonado Notice Issued Date-Time: 07/16/2019 15:45 Notice Type: IM Discharge Notice Notice Delivered To: Patient Relationship to Patient: Screen Door Maker Name: Delivery Method: HAND - Hand Delivered Gricelda Days: Prior Verbal Notification: Recipient Understood Notice: Yes Recipient Signature: Yes Med Rec Note Co-signed by Attending: Coverage Notice Comment: Reviewer: [email or web address] Maldonado Notice Issued Date-Time: 07/16/2019 15:45 Notice Type: Patient Choice Letter Notice Delivered To: Patient Relationship to Patient: Screen Door Maker Name: Delivery Method: HAND - Hand Delivered Gricelda Days: Prior Verbal Notification: Recipient Understood Notice: Yes Recipient Signature: Yes Med Rec Note Co-signed by Attending: Coverage Notice Comment: Last DP export: 07/16/19 3:16 Patient Name: PIPER HERNANDEZ Page [id number] at 1623 All edits/amendments must be made on the electronic document DICTATION DATE: 07/16/191622 HEEL CURVER: ROMA 07/16/191622 RPT#: [id number] DC DATE: STATUS: ADM IN [facility] [address] [place] [address] END OF REPORT
--- NOTE | 2019-07-16 16:58 | NUR ---
DISCHARGE PAPERWORK SIGNED, ALL QUESTIONS ANSWERED. GIVEN EXTRA OSTOMY AND DRESSING SUPPLIES. CENTRAL LINE TO LEFT SUBCLAVIAN REMOVED, TIP INTACT. PT REMAINED LAYING FLAT FOR 15 MINUTES. ESCORTED OUT BY WHEELCHAIR.
--- NOTE | 2019-07-17 12:01 | MORECARE ---
CASE MANAGEMENT DISCHARGE SUMMARY PATIENT: PIPER HERNANDEZ UNIT: [id number] ADM DATE: 07/09/19 AGE: 68 : 52 SEX: F ROOM/BED: D.2206 AUTHOR: RUIZ,DOC PHYSICIAN: REFERRING PHYSICIAN: YAW TORREZ MD DATE OF SERVICE: 07/17/19 Discharge Plan Patient Name: PIPER HERNANDEZ Facility: [facility]:[place] : 1950 Planned Disposition: Home Anticipated Discharge Date: Discharge Date: 07/16/2019 Expected LOS: 0 Initial Reviewer: [email or web address] Initial Review Date: 07/10/2019 Generated: 07/17/19 1:00 pm DCP- Discharge Planning Updated by [email or web address]: Krista Samuels on 07/10/19 7:[address] Patient Name: PIPER HERNANDEZ Admission Status: ER Accout number: [id number] Admission Date: 07-09-2019 : 1950 Admission Diagnosis: Attending: YAW TORREZ Current LOS: 1 Anticipated DC Date: Planned Disposition: Home Primary Insurance: MEDICARE A & B Discharge Planning Comments: CM met with patient to complete initial dc planning assessment. CM educated patient on the CM role and verbal consent given by patient to complete assessment. Patient lives at home with her life partner Sherman where she is independent with her care. At discharge patient plans to return home and feels this is a safe discharge. CM discussed availability of home health, rehab services, and medical equipment. Sherman will transport home when discharged. Patient denied known discharge needs at this time. Uncertain of discharge needs @ this time. CM will continue to follow and will assist as needed with dc plans/needs. Business Solutions Architect: Krista Samuels DCPIA - Discharge Planning Initial Assessment Updated by [email or web address]: Krista Samuels on 07/10/19 8:54 pm * Is the patient Alert and Oriented? Yes * How many steps to enter\exit or inside your home? * PCP NO PCP * Pharmacy [facility] * Preadmission Environment Home with Family * ADLs Independent * Equipment None * List name and contact numbers for known caregivers / representatives who currently or will assist patient after discharge: [facility] - [phone] OR [phone] * Verbal permission to speak to the caregivers and representatives has been obtained from the patient. Yes * Community resources currently utilized None * Additional services required to return to the preadmission environment? No * Can the patient safely return to the preadmission environment? Yes * Has this patient been hospitalized within the prior 30 days at any hospital? No Coverage Notice Reviewer: [email or web address] Maldonado Notice Issued Date-Time: 07/16/2019 15:45 Notice Type: IM Discharge Notice Notice Delivered To: Patient Relationship to Patient: Denture Finisher Name: Delivery Method: HAND - Hand Delivered Gricelda Days: Prior Verbal Notification: Recipient Understood Notice: Yes Recipient Signature: Yes Med Rec Note Co-signed by Attending: Coverage Notice Comment: Reviewer: LIZETH Maldonado Notice Issued Date-Time: 07/16/2019 15:45 Notice Type: Patient Choice Letter Notice Delivered To: Patient Relationship to Patient: Denture Finisher Name: Delivery Method: HAND - Hand Delivered Gricelda Days: Prior Verbal Notification: Recipient Understood Notice: Yes Recipient Signature: Yes Med Rec Note Co-signed by Attending: Coverage Notice Comment: Last DP export: 07/16/19 3:23 Patient Name: PIPER HERNANDEZ Page [phone] at 1201 All edits/amendments must be made on the electronic document DICTATION DATE: 07/17/19 1200 AUDIOVISUAL TECHNICIAN: ROMA 07/17/19 1200 RPT#: [id number] DC DATE:07/16/19 STATUS: DIS IN [facility] [address] [place] [address] END OF REPORT
[2019-07-20 16:08] LABS: AEROBE ID Final report (())
== END 2019-07-16 17:13 | disposition home or self-care (01) | DRG 853 ==
LOC: D.ER 00:26 → D.MS 03:03 → D.ICU 03:03 → D.MS 07-12 18:31
PROVIDERS: Family Medicine; Surgery; ADMIT Internal Medicine Nephrology; ATTEND Internal Medicine Nephrology
PROC: 0D1N0Z4 Bypass Sigmoid Colon to Cutaneous, Open Approach (ICD-10-PCS; 2019-07-10)
PROC: 05H633Z Insertion of Infusion Device into Left Subclavian Vein, Percutaneous Approach (ICD-10-PCS; 2019-07-10)
PROC: 0DTN0ZZ Resection of Sigmoid Colon, Open Approach (ICD-10-PCS; principal; 2019-07-10 11:15)
PROC: 0DTH0ZZ Resection of Cecum, Open Approach (ICD-10-PCS; 2019-07-10 11:15)
DX: A41.9 Sepsis, unspecified organism (principal); G92 Toxic encephalopathy; K57.00 Diverticulitis of small intestine with perforation and abscess without bleeding; E87.1 Hypo-osmolality and hyponatremia; N17.9 Acute kidney failure, unspecified; N82.4 Other female intestinal-genital tract fistulae; D62 Acute posthemorrhagic anemia; K66.8 Other specified disorders of peritoneum; K76.0 Fatty (change of) liver, not elsewhere classified; E87.6 Hypokalemia; F10.10 Alcohol abuse, uncomplicated; F12.90 Cannabis use, unspecified, uncomplicated; D69.6 Thrombocytopenia, unspecified

== ENCOUNTER → 2019-07-29 11:25 | Outpatient (CLI) | payer MEDICARE ==
[2019-07-10 12:53] VITALS: BMI 24.2
[~2019-07-29 11:25] MED LIST changes: +ADDERALL 30 MG30 MG PO; +BENTYL 20 MG TA20 MG PO; +FLAGYL500 MG PO; +HYDROCODON-ACE1 EAC7 PO; +LEVOFLOXACIN500 MG PO
== END | disposition home or self-care (01) ==
LOC: D.CT 11:25
PROVIDERS: ATTEND Surgery
DX: T81.9XXA Unspecified complication of procedure, initial encounter (principal); R06.02 Shortness of breath

== ENCOUNTER 2019-10-14 15:51 | Inpatient (IN) | payer OTHER ==
[~2019-10-14] VITALS: Ht 160 cm; Wt 65.5 kg
[2019-10-25] MEDS ORDERED: QVAR REDIHALE10.6 G1 INH (10:59)
[2019-10-25 11:53] LABS: HEMATOCRIT 43.6 % (36.0-48.0); HEMOGLOBIN 14.2 g/dL (12-16); MCH 28.6 pg (26.0-34.0); MCHC 32.6 g/dL (31.0-37.0); RBC 4.96 10x6/uL (4.00-5.40); WBC 8.1 10x3/uL (4.8-10.8)
[2019-10-28] VITALS (15 sets, daily range): BP systolic 83–107; BP diastolic 45–63; BMI 17.9
--- NOTE | 2019-10-28 16:38 | NUR ---
ORDERED 1500ML BOLUS AND ITS INFUSING. BP LOW BUT PT IS A&O AND ASYMPTOMATIC. WILL CTM.
--- NOTE | 2019-10-28 16:43 | NUR ---
EMPTIED 70CC OF BLOOD FROM ABDOMEN KWAN DRAIN, KWAN BACK TO SUCTION. WILL CTM.
--- NOTE | 2019-10-28 17:08 | NUR ---
1700 ARRIVED TO ROOM FROM PACU VIA STRETCHER INITIATED FREQUENT VITAL SIGN EVERY 15 MIN. FAMILY MEMBER AT BEDSIDE
--- NOTE | 2019-10-28 18:30 | NUR ---
1830 INITIATED ONE UNIT FFP
[2019-10-28 18:49] LABS: ANION GAP 14.5 mmol/L (8-16); CARBON DIOXIDE 19.5 mmol/L (21.0-32.0); CREATININE - SERUM 0.9 mg/dL (0.6-1.3); HEMATOCRIT 32.4 % (36.0-48.0); HEMOGLOBIN 10.3 g/dL (12-16); MCH 28.4 pg (26.0-34.0); MCHC 31.8 g/dL (31.0-37.0); MCV 89.3 fL (80.0-100.0); MEAN PLATELET VOLUME 10.1 fL (7.4-10.4); PLATELET COUNT 324 10x3/uL (130-400); RBC 3.63 10x6/uL (4.00-5.40); RDW 15.7 % (11.5-14.5); WBC 20.9 10x3/uL (4.8-10.8)
--- NOTE | 2019-10-28 19:30 | NUR ---
PT A/OX4, FRIEND AT BEDSIDE, RIGHT HAND PIV INTACT WITH IVF INFUSING, DRESSING INTACT TO ABDOMEN, KWAN DRAIN INTACT AND DRAINING BLOODY FLUID, SANTA PATENT TO BSD, VITALS STABLE, DR LYNNE HERE TO SEE PT
--- NOTE | 2019-10-28 19:42 | NUR ---
DR. LYNNE AT BEDSIDE, UPDATE GIVEN, NEW ORDERS RECIEVED,
[2019-10-28 20:31] LABS: EOSINOPHILS 3 % (0-7); LYMPHOCYTES 19 % (15-50); MONOCYTES 1 % (2-11); NEUTROPHILS 69 % (40-80); PLATELET ESTIMATE NORMAL
--- NOTE | 2019-10-28 21:00 | NUR ---
PT RESTING QUIETLY, EYE DROPS GIVEN FOR C/O LEFT EYE IRRITATION, NO DEBRIS NOTED IN EYE, MILD SCLERAL EDEMA NOTED, WILL CONT TO MONITOR
--- NOTE | 2019-10-28 23:15 | NUR ---
PT RESTING QUIETLY WITH NO DISTRESS, VITALS STABLE
[2019-10-29] VITALS (24 sets, daily range): BP systolic 88–108; BP diastolic 42–78; Ht 160 cm; Wt 65.5 kg
--- NOTE | 2019-10-29 00:30 | NUR ---
LAB IN ROOM TO DRAW CBC, PT AWAKE, VITALS STABLE
[2019-10-29 00:53] LABS: BASOPHILS 0.1 % (0-2); EOSINOPHILS 0.1 % (0-7); HEMATOCRIT 29.1 % (36.0-48.0); HEMOGLOBIN 9.5 g/dL (12-16); IMMATURE GRANULOCYTES 0.3 % (0-5); LYMPHOCYTES 4.9 % (15-50); MCH 28.3 pg (26.0-34.0); MCHC 32.6 g/dL (31.0-37.0); MCV 86.6 fL (80.0-100.0); MEAN PLATELET VOLUME 9.8 fL (7.4-10.4); MONOCYTES 6.7 % (2-11); NEUTROPHILS 87.9 % (40-80); PLATELET COUNT 233 10x3/uL (130-400); RBC 3.36 10x6/uL (4.00-5.40); RDW 16.1 % (11.5-14.5); WBC 17.4 10x3/uL (4.8-10.8)
--- NOTE | 2019-10-29 01:30 | NUR ---
PT GIVEN MORPHINE BOLUS FOR SEVERE PAIN
--- NOTE | 2019-10-29 03:30 | NUR ---
PT AWAKE, RIGHT HAND EDEMATOUS AND TENDER TO TOUCH, D/C'D IV, RESITED TO LEFT FOREARM WITH 20 G IV CATH, PT TOLERATED WELL
[2019-10-29 04:26] LABS: BASOPHILS 0.1 % (0-2); EOSINOPHILS 0 % (0-7); HEMATOCRIT 30.2 % (36.0-48.0); HEMOGLOBIN 9.8 g/dL (12-16); IMMATURE GRANULOCYTES 0.4 % (0-5); LYMPHOCYTES 5.2 % (15-50); MCH 28.3 pg (26.0-34.0); MCHC 32.5 g/dL (31.0-37.0); MCV 87.3 fL (80.0-100.0); MEAN PLATELET VOLUME 9.9 fL (7.4-10.4); MONOCYTES 6.4 % (2-11); NEUTROPHILS 87.9 % (40-80); PLATELET COUNT 271 10x3/uL (130-400); RBC 3.46 10x6/uL (4.00-5.40); RDW 16.3 % (11.5-14.5); WBC 19.5 10x3/uL (4.8-10.8)
[2019-10-29 04:36] LABS: APTT 32.3 SECONDS (22.8-39.4); INR 1.09 (0.85-1.17); PROTIME 14.1 SECONDS (11.6-15.0)
[2019-10-29 04:38] LABS: ANION GAP 14.1 mmol/L (8-16); CALCIUM 7.3 mg/dL (8.5-10.1); CARBON DIOXIDE 22.7 mmol/L (21.0-32.0)
[2019-10-29 04:48] LABS: POTASSIUM - SERUM 4.8 mmol/L (3.5-5.1)
--- NOTE | 2019-10-29 05:30 | NUR ---
PT AWAKE WITH SIGNIFICANT OTHER @ BEDSIDE, NO DISTRESS NOTED
--- NOTE | 2019-10-29 08:28 | OP ---
PATIENT NAME: PIPER HERNANDEZ MEDICAL RECORD: [id number] :[birth year] LOCATION:[facility] D.2312 ADMISSION DATE:10/28/19 SURGEON: FLOR LYNNE MD DATE OF OPERATION: 10/28/2019 SURGEON: Flor Lynne MD PREOPERATIVE DIAGNOSES: History of perforated diverticulitis with colostomy present. POSTOPERATIVE DIAGNOSES: History of perforated diverticulitis with colostomy present. PROCEDURE PERFORMED: Laparotomy with extensive adhesiolysis and colostomy reversal. ANESTHESIA: General. COMPLICATIONS: None. SPECIMENS: Descending colon and colorectal anastomotic doughnuts. ESTIMATED BLOOD LOSS: 1500 cc. Case was clean contaminated. OPERATIVE COURSE: After consent was obtained, the patient was taken to the operating room and placed in the supine position on the operating table. Next, general anesthesia was given via endotracheal intubation after a timeout was performed to confirm the correct patient and procedure. The abdomen was prepped and draped in typical sterile fashion. An Ioban dressing was placed. The previous midline incision was opened using a 10-blade scalpel. Dissection carried through subcutaneous tissues and electrocautery. Once the fascia was identified, the fascia was opened with electrocautery. The peritoneum was then grasped with Lyly clamps times 2 and incised with Metzenbaum scissors. Adhesions were gently swept away from the fascia and the remaining portion of the fascia was opened under direct vision using electrocautery. At this time, extensive adhesiolysis was performed last seen approximately 90 minutes. There were innumerable adhesions of the small bowel to the anterior abdominal wall as well as intraloop adhesions with 2 loops of bowel tightly densely adherent to the anterior uterus and rectal cuff. Once the adhesiolysis had been performed, the small bowel was run from the ligament of Treitz to the ileocecal anastomosis on multiple occasions. There were multiple serosal defects noted at the small bowel that were repaired with 3-0 Vicryl suture and the endoscope irrigated and suctioned. The rectal stump was very difficult to mobilize. There were dense adhesions in the presacral fascial plane as well as on the right pelvic side wall. There was extensive bleeding from the right lateral pelvic veins that were ligated with a 3-0 Prolene suture. At this time, an elliptical incision was made around the left lower quadrant colostomy with a 10-blade scalpel. Dissection continued through the subcutaneous tissue using electrocautery. The colon was dissected using right angle dissector and electrocautery to the level of the fascia. A plane was dissected between the fascia and the colon. Circumferential dissection was then performed, which allowed the colon to be delivered back into the abdominal cavity. The fascial defect was closed with interrupted 0 Prolene suture. There was adequate length on the colon to the OPERATIVE REPORT [id number] PIPER HERNANDEZ. At this time, sizers were placed into the rectum and it was held using a 25-mm EEA stapler. The 25-mm anvil was placed into the end colostomy. A linear GI stapler was then used to transect, had healthy tissue with good blood flow. The distal colectomy specimen was passed off the field. The anvil was delivered anterior to the staple line. The EEA stapler was placed into the rectum under direct vision, it was advanced to the distal rectal stump. The spike was deployed and the anvil was attached. The stapler was closed and held for approximately 3 minutes before firing. The anastomosis was incomplete and EEA stapler was removed. The anastomosis was taken down. The wound edges were freshened with sharp scissor dissection. The rectal stump was closed with interrupted 0 Prolene suture and a new anvil was placed into the distal colon specimen. Again, a GI stapler was fired. The anvil was delivered into the staple line. Again, the EEA stapler was placed in the rectum. Again, the spike was deployed. The anvil was attached to the EEA device and closed, held for 3 minutes before firing the circular cutting blade. At this time, the EEA was removed with the anastomosis intact. The entire staple line was reinforced using interrupted 3-0 Vicryl suture as well as Tisseel. The abdomen was copiously suctioned and irrigated at this time with 3 liters of warm normal saline. A KWAN drain was placed to the right lower quadrant and into the presacral fascia. At this time, all members of the surgical team changed gowns and gloves for fascial closure. Deep fascia then closed with #1 looped PDS. Skin was closed with nicki. The colostomy site was loosely reapproximated using nicki. The wound was packed with saline moistened gauze and covered with dry gauze dressings. At the end of the case, all needle and instrument counts were correct. No complications occurred. The patient was extubated and transferred to the PACU in stable condition. TRANSINT:[id number] Voice Confirmation ID: [id number] DOCUMENT ID: [id number] FLOR LYNNE MD at 0828 CC: [id number] DICTATION DATE: 10/28/19 1623 GOLF CADDY: 10/29/19 0241 ADM IN [place] [id number] [place] [address]
--- NOTE | 2019-10-29 09:10 | NUR ---
dr akbar at bedside
--- NOTE | 2019-10-29 09:54 | NUR ---
called pharmacy for fluids
--- NOTE | 2019-10-29 11:27 | NUR ---
paged dr akbar. patient states "2mg q 10 min is not enough. i cant even sleep" stated i will try paging dr akbar again and see if he will give her something else i also educated patient on stitch bonding machine tender. she did not understand the max limit.
--- NOTE | 2019-10-29 13:49 | NUR ---
paged dr akbar again. patient requests more pain meds
--- NOTE | 2019-10-29 14:21 | NUR ---
DR LYNNE PAGED BACK. NO NEW ORDERS
[2019-10-29 17:59] LABS: HEMATOCRIT 26.6 % (36.0-48.0); HEMOGLOBIN 8.8 g/dL (12-16)
--- NOTE | 2019-10-29 19:00 | NUR ---
RECEIVED PATIENT LYING IN BED WITH EYES OPEN. ASSESSMENT COMPLETED. SEE NURSING FLOW SHEET. DRESSING TO ABDOMEN CDI. KWAN DRAIN RIGHT ABDOMEN WITH BLODDY DRAINAGE NOTED. PT RATES PAIN 7/10 HOWEVER IS ON MORPHINE GLAZIER APPRENTICE. PATIENT BP RUNNING LOW THEREFORE PHYSICIAN DOES NOT WANT TO GIVE MORE PAIN MEDICATION. SANTA TO GRAVITY DRAINING CLEAR YELLOW URINE. CL WITHIN REACH AND BED IN LOW POSITION.
--- NOTE | 2019-10-29 21:00 | NUR ---
VISITOR AT BEDSIDE. NO CHANGES NOTED. KWAN DRAIN STILL DEFLATED AND SANTA DRAINING WIHTOUT DIFFICULTY.
--- NOTE | 2019-10-29 22:00 | NUR ---
UPDATE GIVEN TO DR. LYNNE, NO NEW ORDERS RECIEVED
--- NOTE | 2019-10-29 22:08 | NUR ---
EYES CLOSED. RESPIRATIONS EVEN AND UNLABORED. NO DISTRESS NOTED.
--- NOTE | 2019-10-29 23:18 | NUR ---
ASSESSMENT COMPLETED. SEE NURSING FLOWSHEET. NO CHANGES NOTED. BEDSIDE COMMODE PLACED AT PATIENT'S BEDSIDE. CL WITHIN REACH. BED IN LOW POSITION.
[2019-10-30] VITALS (17 sets, daily range): BP systolic 87–131; BP diastolic 37–67
--- NOTE | 2019-10-30 00:22 | NUR ---
PATIENT AROUSED WHEN HANGING IVPB. RELATES PAIN 02/11. HELPS IF SHE DOESN'T MOVE. DENIES NEEDS. CL IN REACH. BED IN LOW POSITION.
--- NOTE | 2019-10-30 02:09 | NUR ---
AROUSED WHEN NURSE ENTERS THE ROOM. NO DISTRESS NOTED. DENIES NEEDS. CL IN REACH.
--- NOTE | 2019-10-30 03:20 | NUR ---
ASSESSMENT COMPLETED. SEE NURSING FLOW SHEET. CONFUSED AND RESTLESS. CL IN REACH. BED IN LOW POSITION. ALARM AUDIBLE. CONTINUE POC.
--- NOTE | 2019-10-30 03:21 | NUR ---
ASSESSMENT COMPLETED. EASILY AROUSED. RELATES SHE IS A LIGHT SLEEPER. PAIN IS 5/10. NO ACUTE CHANGES NOTED. DENIES NEEDS. CL IN REACH.
--- NOTE | 2019-10-30 03:56 | NUR ---
MORPHINE CHIEF PRIVACY OFFICER CHANGED. PAIN 01/11. LAB HERE AND ALLEN BLOOD. NO ACUTE CHANGES NOTED.
[2019-10-30 04:37] LABS: BASOPHILS 0.1 % (0-2); EOSINOPHILS 0.2 % (0-7); HEMATOCRIT 21.8 % (36.0-48.0); IMMATURE GRANULOCYTES 0.3 % (0-5); LYMPHOCYTES 8.4 % (15-50); MCH 28.9 pg (26.0-34.0); MCV 87.6 fL (80.0-100.0); MEAN PLATELET VOLUME 9.9 fL (7.4-10.4); MONOCYTES 8.7 % (2-11); NEUTROPHILS 82.3 % (40-80); RDW 16.5 % (11.5-14.5)
[2019-10-30 04:52] LABS: APTT 35.3 SECONDS (22.8-39.4); INR 1.17 (0.85-1.17); PROTIME 14.8 SECONDS (11.6-15.0)
[2019-10-30 04:54] LABS: CALC OSMOLALITY 280 mosm/kg (275-300); CARBON DIOXIDE 27.5 mmol/L (21.0-32.0); CHLORIDE - SERUM 109 mmol/L (98-107); GLUCOSE 139 mg/dL (74-106); SODIUM 140 mmol/L (136-145); UREA NITROGEN 12 mg/dL (7-18)
[2019-10-30 04:58] LABS: CREATININE - SERUM 0.7 mg/dL (0.6-1.3); eGFR NON AFRICAN AMERICAN 89 mL/min (90-120)
[2019-10-30 05:37] LABS: HEMOGLOBIN 7.2 g/dL (12-16); PLATELET COUNT 208 10x3/uL (130-400); RBC 2.49 10x6/uL (4.00-5.40); WBC 14.5 10x3/uL (4.8-10.8)
--- NOTE | 2019-10-30 06:30 | NUR ---
PATIENT STOOD UP FOR A FEW MINUTES AND SAT IN THE CHAIR. BACK TO BED. NO ACUTE CHANGES NOTED.
--- NOTE | 2019-10-30 06:36 | NUR ---
HGB 7.2. DR LYNNE NOTIFIED BY ERIC PRINT BINDING AND FINISHING WORKER NURSE. NO RESPONSE FROM DR LYNNE AT THIS TIME.
--- NOTE | 2019-10-30 06:38 | NUR ---
CRITICAL LAB CALLED TO DR. LYNNE, NEW ORDERS RECIEVED
--- NOTE | 2019-10-30 07:00 | NUR ---
REC'D REPORT AND RESUMED CARE, AAO, VSS, O2 VIA RM AIR, CIGAR TOBACCO REHANDLER IN USE, C/O PAIN 5/10, IN ABDOMEN, MIDLINE AND TRANSVERSE, INCISION WITH NADIR, DRESSINGS CDI, SANTA TO GRAVITY, CLEAR YELLOW DRAINAGE TO BAG, SCD'S ON B/L, ASSESSMENT COMPLETED PER FLOWSHEET, CALL LIGHT IN REACH, SELF REPOSITIONS, NO NEEDS AT THIS TIME
--- NOTE | 2019-10-30 08:15 | NUR ---
PRBC INITIATED, VSS, NO NEEDS AT THIS TIME
--- NOTE | 2019-10-30 08:32 | NUR ---
Nutrition follow-up: Pt remains NPO after colostomy takedown; waiting for bowel function to return Labs reviewed Wt: 144# today; admit wt 101# ?? Will need nutrition support soon if po diet unable to begin. RDN following.
--- NOTE | 2019-10-30 09:00 | NUR ---
MORNING MEDS GIVEN PER NOV FLOWSHEET
--- NOTE | 2019-10-30 09:30 | NUR ---
GUERA SEARS AT BEDSIDE, UNDRESSED INCISION FOR REDRESSING AND PACKING
--- NOTE | 2019-10-30 10:15 | NUR ---
DRESSING CHANGE COMPLETED, 1 INCH OPENING PACK WITH SALINE GAUZE, COVERED WITH 4 X 4'S, TOLERATED WITHOUT DIFFICULTY, STEAMER BLOCKER PUMP MALFUNCTIONED, CHANGED WITH NEW ONE, NO OTHER NEEDS AT THIS TIME
--- NOTE | 2019-10-30 11:00 | NUR ---
SLEEPING WITH NO SIGN OF DISTRESS, VSS, AROUSES TO VERBAL STIMULI, CALL LIGHT IN REACH, NO NEEDS AT THIS TIME
--- NOTE | 2019-10-30 11:58 | MORECARE ---
CASE MANAGEMENT DISCHARGE SUMMARY PATIENT: PIPER HERNANDEZ UNIT: [id number] ADM DATE: 10/28/19 AGE: 68 : 52 SEX: F ROOM/BED: D.2312 AUTHOR: RUIZ,DOC PHYSICIAN: REFERRING PHYSICIAN: FLOR LYNNE MD DATE OF SERVICE: 10/30/19 Discharge Plan Patient Name: PIPER HERNANDEZ Facility: [facility]:[place] : 1950 Planned Disposition: Anticipated Discharge Date: Discharge Date: Expected LOS: Initial Reviewer: [email or web address] Initial Review Date: 10/29/2019 Generated: 10/30/19 12:57 pm Comments DCP- Discharge Planning Updated by [email or web address]: rKista Samuels on 10/30/19 10:[address] Late Entry 10/29/19 Patient Name: PIPER HERNANDEZ Admission Status: Elective Accout number: [id number] Admission Date: 10-28-2019 : 1950 Admission Diagnosis: Attending: FLOR LYNNE Current LOS: 1 Anticipated DC Date: Planned Disposition: Primary Insurance: [employer] PPO Discharge Planning Comments: CM met with patient to complete initial dc planning assessment. CM educated patient on the CM role and verbal consent given by patient to complete assessment. Patient lives at home with her life partner where she is independent with her care. At discharge patient plans to return home and feels this is a safe discharge. CM discussed availability of home health, rehab services, and medical equipment. Her partner will be her tow driver home. Patient denied known discharge needs at this time. CM will continue to follow and will assist as needed with dc plans/needs. Retail Department Supervisor: Krista Samuels DCPIA - Discharge Planning Initial Assessment Updated by [email or web address]: Krista Samuels on 10/30/19 11:51 am * Is the patient Alert and Oriented? Yes * How many steps to enter\exit or inside your home? * PCP unsure hasn't seen * Pharmacy [facility]/ [facility] * Preadmission Environment Home with Family * ADLs Independent * Equipment None * List name and contact numbers for known caregivers / representatives who currently or will assist patient after discharge: Sherman Donnelly [employer] [facility] - [phone] or [phone] * Verbal permission to speak to the caregivers and representatives has been obtained from the patient. Yes * Community resources currently utilized None * Additional services required to return to the preadmission environment? No * Can the patient safely return to the preadmission environment? Yes * Has this patient been hospitalized within the prior 30 days at any hospital? No Patient Name: PIPER HERNANDEZ Page [id number] at 1158 All edits/amendments must be made on the electronic document DICTATION DATE: 10/30/19 1157 DOOR CUTTER: RMOA 10/30/19 1157 RPT#: [id number] DC DATE: STATUS: ADM IN [facility] [address] [place] [address] END OF REPORT
--- NOTE | 2019-10-30 13:30 | NUR ---
SANTA DC'D WITHOUT DIFFICULTY, LINSEY CARE GIVEN, 800 CC URINE TO BAG
--- NOTE | 2019-10-30 15:00 | NUR ---
OOB TO BSC, URINATED TO BSC, 150 CC, UP TO CHAIR WITH STAND BY ASSIST, NO OTHER ACUTE CHANGE FROM PREVIOUS
--- NOTE | 2019-10-30 17:35 | NUR ---
TRANSFERRED VIA WHEELCHAIR TO ROOM 2234, AAO, SIGNIFICANT OTHER AT BEDSIDE, NO OTHER NEEDS AT THIS TIME
[2019-10-30 20:25] LABS: HEMATOCRIT 25.5 % (36.0-48.0); HEMOGLOBIN 8.5 g/dL (12-16)
[2019-10-31 01:44] VITALS: BP 124/50
[2019-10-31 05:10] LABS: BASOPHILS 0.2 % (0-2); EOSINOPHILS 3.6 % (0-7); HEMATOCRIT 24.6 % (36.0-48.0); HEMOGLOBIN 8.2 g/dL (12-16); IMMATURE GRANULOCYTES 0.4 % (0-5); LYMPHOCYTES 11.7 % (15-50); MCH 28.6 pg (26.0-34.0); MCHC 33.3 g/dL (31.0-37.0); MCV 85.7 fL (80.0-100.0); MEAN PLATELET VOLUME 9.6 fL (7.4-10.4); MONOCYTES 8.1 % (2-11); PLATELET COUNT 206 10x3/uL (130-400); RBC 2.87 10x6/uL (4.00-5.40); RDW 16.2 % (11.5-14.5); WBC 11.3 10x3/uL (4.8-10.8)
[2019-10-31 05:35] LABS: CALC OSMOLALITY 272 mosm/kg (275-300); CALCIUM 7.9 mg/dL (8.5-10.1); CARBON DIOXIDE 31.5 mmol/L (21.0-32.0); CHLORIDE - SERUM 103 mmol/L (98-107); CREATININE - SERUM 0.6 mg/dL (0.6-1.3); GLUCOSE 120 mg/dL (74-106); POTASSIUM - SERUM 3.1 mmol/L (3.5-5.1); SODIUM 137 mmol/L (136-145); UREA NITROGEN 7 mg/dL (7-18); eGFR NON AFRICAN AMERICAN > 90 mL/min (90-120)
[2019-10-31 06:48] VITALS: BP 135/60
--- NOTE | 2019-10-31 07:36 | NUR ---
PT LYING IN BED, NADIR ON MIDLINE ARE CDI, DRESSING TO LEFT SIDE CDI HAS SOME DRAINAGE THROUGH BANDAGE, DAILY DRESSINGS, WILL CHANGE TODAY. KWAN DRAIN ON RT SIDE. PT K+ IS 3.1 THIS MORNING. 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 NO OTHER NEEDS VOICED, ASSUME PT CARE
[2019-10-31 09:01] VITALS: BP 117/66
--- NOTE | 2019-10-31 10:32 | NUR ---
PT K+ IS 3.[address] LYNNE WHO ORDERED 40MEQ OF K+. PT STATES THAT K+ PILLS MAKE HER SICK TO HER STOMACH AND SHE WILL NOT BE ABLE TO SWALLOW PILLS EITHER, HAVE K+ THAT WE CAN PLACE IN WATER OR JUICE TO SEE IF PT CAN HANDLE THAT. WILL CONTINUE WITH PLAN OF CARE
--- NOTE | 2019-10-31 11:35 | NUR ---
PT TRIED TO DRINK K+ MIXTURE AND UNABLE TO, ORDERED 40 MEQ PF K+ FOR PO. WILL CONTINUE WITH PLAN OF CARE
--- NOTE | 2019-10-31 11:47 | NUR ---
I have reviewed this patient and I concur with the Shift Assessment completed by the Licensed Practical Nurse today this shift.
[2019-10-31 13:12] VITALS: BP 105/66
--- NOTE | 2019-10-31 13:18 | NUR ---
NUTRITION F/U CHART REVIEWED. VEGETARIAN CLEAR LIQUID DIET STARTED. WILL MONITOR DIET ADVANCEMENT, PO INTAKE. MAY REQUIRE NUTRITION SUPPORT IF PT UNABLE TO TOLERATE ADVANCED DIET. RD FOLLOWING
[2019-10-31 16:44] VITALS: BP 136/67
--- NOTE | 2019-10-31 19:41 | NUR ---
CHANGED PT DRESSING ON LEFT SIDE, WET TO DRY, INITIAL AND DATED DRESSING SITE. PT IS LUYING IN BED STATES SHE FEELS A LOT BETTER, NO S/SX OF DISTRESS, CL IN REACH CONTINUE WITH PLAN OF CARE
[2019-10-31 20:00] VITALS: BP 153/69
[2019-11-01] VITALS: BP 150/71
[2019-11-01 07:13] LABS: BASOPHILS 0.1 % (0-2); HEMOGLOBIN 9.2 g/dL (12-16); IMMATURE GRANULOCYTES 0.3 % (0-5); MCH 28.3 pg (26.0-34.0); MCHC 32.9 g/dL (31.0-37.0); MCV 86.2 fL (80.0-100.0); MEAN PLATELET VOLUME 9.8 fL (7.4-10.4); MONOCYTES 8.8 % (2-11); NEUTROPHILS 73.8 % (40-80); PLATELET COUNT 325 10x3/uL (130-400); RBC 3.25 10x6/uL (4.00-5.40); RDW 15.7 % (11.5-14.5); WBC 10.5 10x3/uL (4.8-10.8)
[2019-11-01 07:23] LABS: CALC OSMOLALITY 276 mosm/kg (275-300); CARBON DIOXIDE 29.2 mmol/L (21.0-32.0); CHLORIDE - SERUM 104 mmol/L (98-107); CREATININE - SERUM 0.6 mg/dL (0.6-1.3); GLUCOSE 114 mg/dL (74-106); POTASSIUM - SERUM 3.5 mmol/L (3.5-5.1); SODIUM 140 mmol/L (136-145); eGFR NON AFRICAN AMERICAN > 90 mL/min (90-120)
[2019-11-01 07:24] LABS: UREA NITROGEN 3 mg/dL (7-18)
[2019-11-01 08:11] VITALS: BP 158/79
--- NOTE | 2019-11-01 08:27 | NUR ---
SHE IS PASSING GAS, PAIN CONTROLLED WITH THE ERECTION SHOP SUPERVISOR. WALKING TO THE BATHROOM. KWAN TO THE RIGHT SIDE WITHOUT OUTPUT, DRESSING TO THE LEFT SIDE C/D/I. MIDLINE NADIR.
[2019-11-01 08:41] VITALS: BP 128/67
[2019-11-01] MEDS ORDERED: LEVOFLOXACIN500 MG PO (12:42)
[2019-11-01] MEDS ORDERED: HYDROCODON-ACE1 EAC7 PO (12:43)
[2019-11-01] MEDS ORDERED: MIRALAX17 GM PO (12:43)
[2019-11-01 13:41] VITALS: BP 151/56
--- NOTE | 2019-11-01 14:10 | MORECARE ---
CASE MANAGEMENT DISCHARGE SUMMARY PATIENT: PIPER HERNANDEZ UNIT: [id number] ADM DATE: 10/28/19 AGE: 68 : 52 SEX: F ROOM/BED: D.2234 AUTHOR: RUIZ,DOC PHYSICIAN: REFERRING PHYSICIAN: FLOR LYNNE MD DATE OF SERVICE: 11/01/19 Discharge Plan Patient Name: PIPER HERNANDEZ Facility: [facility]:[place] : 1950 Planned Disposition: Anticipated Discharge Date: Discharge Date: Expected LOS: Initial Reviewer: [email or web address] Initial Review Date: 10/29/2019 Generated: 11/01/19 3:09 pm Comments DCP- Discharge Planning Updated by [email or web address]: Elizabeth Mychal on 11/01/19 1:[address] CM met with patient and partner, Sherman. Patient and Sherman state that Sherman will do the wound packing daily if they can get the supplies. I asked patient's primary nurse, Flower. Flower states she will get supplies for them to take home. Both decline need for HHS. No needs identified. Home today. DCP- Discharge Planning Updated by [email or web address]: Krista Samuels on 10/30/19 10:[address] Late Entry 10/29/19 Patient Name: PIPER HERNANDEZ Admission Status: Elective Accout number: [id number] Admission Date: 10-28-2019 : 1950 Admission Diagnosis: Attending: FLOR LYNNE Current LOS: 1 Anticipated DC Date: Planned Disposition: Primary Insurance: [employer] PPO Discharge Planning Comments: CM met with patient to complete initial dc planning assessment. CM educated patient on the CM role and verbal consent given by patient to complete assessment. Patient lives at home with her life partner where she is independent with her care. At discharge patient plans to return home and feels this is a safe discharge. CM discussed availability of home health, rehab services, and medical equipment. Her partner will be her helper/driver home. Patient denied known discharge needs at this time. CM will continue to follow and will assist as needed with dc plans/needs. Lens Generating Machine Tender: Krista Samuels DCPIA - Discharge Planning Initial Assessment Updated by [email or web address]: Krista Samuels on 10/30/19 11:51 am * Is the patient Alert and Oriented? Yes * How many steps to enter\exit or inside your home? * PCP unsure hasn't seen * Pharmacy [facility]/ [facility] * Preadmission Environment Home with Family * ADLs Independent * Equipment None * List name and contact numbers for known caregivers / representatives who currently or will assist patient after discharge: Sherman Donnelly - [facility] - [phone] or [phone] * Verbal permission to speak to the caregivers and representatives has been obtained from the patient. Yes * Community resources currently utilized None * Additional services required to return to the preadmission environment? No * Can the patient safely return to the preadmission environment? Yes * Has this patient been hospitalized within the prior 30 days at any hospital? No Last DP export: 10/30/19 10:58 a Patient Name: PIPER HERNANDEZ Page 29919 at 1410 All edits/amendments must be made on the electronic document DICTATION DATE: 11/01/19 140 GRADUATE ASSISTANT: ROMA 11/01/19 1409 RPT#: [id number] DC DATE: STATUS: ADM IN [facility] [address] [place] [address] END OF REPORT
--- NOTE | 2019-11-04 09:20 | MORECARE ---
CASE MANAGEMENT DISCHARGE SUMMARY PATIENT: PIPER HERNANDEZ UNIT: [id number] ADM DATE: 10/28/19 AGE: 68 : 54 SEX: F ROOM/BED: D.2234 AUTHOR: RUIZ,DOC PHYSICIAN: REFERRING PHYSICIAN: FLOR LYNNE MD DATE OF SERVICE: 11/04/19 Discharge Plan Patient Name: PIPER HERNANDEZ Facility: [facility]:[place] : 1950 Planned Disposition: Anticipated Discharge Date: Discharge Date: 11/01/2019 Expected LOS: Initial Reviewer: [email or web address] Initial Review Date: 10/29/2019 Generated: 11/04/19 10:20 am Comments DCP- Discharge Planning Updated by [email or web address]: Elizabeth Sepulvedaalessandra on 11/01/19 1:[address] CM met with patient and partner, Sherman. Patient and Sherman state that Sherman will do the wound packing daily if they can get the supplies. I asked patient's primary nurse, Flower. Flower states she will get supplies for them to take home. Both decline need for HHS. No needs identified. Home today. DCP- Discharge Planning Updated by [email or web address]: Krista Samuels on 10/30/19 10:[address] Late Entry 10/29/19 Patient Name: PIPER HERNANDEZ Admission Status: Elective Accout number: [id number] Admission Date: 10-28-2019 : 1950 Admission Diagnosis: Attending: FLOR LYNNE Current LOS: 1 Anticipated DC Date: Planned Disposition: Primary Insurance: [employer] PPO Discharge Planning Comments: CM met with patient to complete initial dc planning assessment. CM educated patient on the CM role and verbal consent given by patient to complete assessment. Patient lives at home with her life partner where she is independent with her care. At discharge patient plans to return home and feels this is a safe discharge. CM discussed availability of home health, rehab services, and medical equipment. Her partner will be her taxi driver home. Patient denied known discharge needs at this time. CM will continue to follow and will assist as needed with dc plans/needs. Instructor Dancing: Krista Samuels DCPIA - Discharge Planning Initial Assessment Updated by [email or web address]: Krista Samuels on 10/30/19 11:51 am * Is the patient Alert and Oriented? Yes * How many steps to enter\exit or inside your home? * PCP unsure hasn't seen * Pharmacy [facility]/ [facility] * Preadmission Environment Home with Family * ADLs Independent * Equipment None * List name and contact numbers for known caregivers / representatives who currently or will assist patient after discharge: Sherman Cony - [facility] - [phone] or [phone] * Verbal permission to speak to the caregivers and representatives has been obtained from the patient. Yes * Community resources currently utilized None * Additional services required to return to the preadmission environment? No * Can the patient safely return to the preadmission environment? Yes * Has this patient been hospitalized within the prior 30 days at any hospital? No Last DP export: 11/01/19 1:10 p Patient Name: PIPER HERNANDEZ Page [id number] at 0920 All edits/amendments must be made on the electronic document DICTATION DATE: 11/04/19919 EDGER HAND: ROMA 11/04/19919 RPT#: [id number] DC DATE:11/01/19 STATUS: DIS IN [facility] [address] [place] [address] END OF REPORT
== END 2019-11-01 20:16 | disposition home or self-care (01) | DRG 330 ==
LOC: D.SDCHOLD 10-28 07:40 → D.ICU 10-28 07:40 → D.SDCHOLD 10-28 09:30 → D.ICU 10-28 16:33 → D.MS 10-30 17:52
PROVIDERS: Anesthesiology; ADMIT Surgery; ATTEND Surgery
PROC: 0DBN4ZZ Excision of Sigmoid Colon, Percutaneous Endoscopic Approach (ICD-10-PCS; principal; 2019-10-28 09:45)
DX: K57.20 Diverticulitis of large intestine with perforation and abscess without bleeding (principal); D62 Acute posthemorrhagic anemia; I95.9 Hypotension, unspecified